=== PATIENT | male | born 2005 | race Caucasian/White ===

== ENCOUNTER 2025-04-04 09:25 | Day surgery (SDC) | payer BC ==
[2025-04-02 11:50] VITALS: BMI 26.6
[2025-04-04] MEDS ORDERED: SUGAMMADEX SODIUM 200 MG/2 ML VIAL ONE (12:10)
[2025-04-04] MEDS ORDERED: Rocuronium Bromide 10 MG/ML (10ML VIAL) ONE (12:10)
[2025-04-04] MEDS ORDERED: PROPOFOL 40 ML ONE (12:11)
[2025-04-04] MEDS ORDERED: Lidocaine 4% Topical Sol 50 ML BOT ONE (13:04)
[2025-04-04] MEDS ORDERED: oFLOXacin 0.3% Opth 5 ML BOT ONE (13:06)
[2025-04-04] MEDS ORDERED: CEFAZOLIN 2 GM VIAL ONE (13:46)
[2025-04-04] MEDS ORDERED: PROPOFOL 20 ML ONE (13:50)
[2025-04-04] MEDS ORDERED: HYDROcodone/Acetaminophen 5/325 mg Tablet ONE (16:52)
== END 2025-04-04 17:30 | disposition home or self-care (01) ==
LOC: CSHSDC 09:25
PROVIDERS: ATTEND Otolaryngology Plastic Surgery within the Head & Neck
PROC: 09D Ear, Nose, Sinus, Extraction (ICD-10-PCS; principal; 2025-04-04)
DX: H71.92 Unspecified cholesteatoma, left ear (principal); J33.9 Nasal polyp, unspecified; J30.9 Allergic rhinitis, unspecified; H90.12 Conductive hearing loss, unilateral, left ear, with unrestricted hearing on the contralateral side; H92.12 Otorrhea, left ear; H70.12 Chronic mastoiditis, left ear; H65.22 Chronic serous otitis media, left ear; Z90.89 Acquired absence of other organs; Z88.2 Allergy status to sulfonamides; Z88.1 Allergy status to other antibiotic agents
CPT/HCPCS: 88304; J0169; J1100; J2250; J2704